=== PATIENT | female | born 2000 | race Hispanic/Latino ===

== ENCOUNTER 2022-12-31 14:39 | Emergency (ER) | payer SELFPAY ==
[2022-12-31] MEDS ORDERED: LIDOCAINE 2% MPF 5 ML VIAL ONE (16:15)
[2022-12-31] MEDS ORDERED: LIDOCAINE HCL JELLY 2% 6 ML SYRINGE TOP ONE (16:16)
[2022-12-31] MEDS ORDERED: BUPIVACAINE 0.5% PF 10 ML VIAL ONE (16:16)
[2022-12-31] MEDS ORDERED: TDAP (DIPHTH,PERTUSS(ACELL),TET VAC) 0.5 ML VIAL IMVAC ONE (16:16)
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
[2022-12-31] MEDS ORDERED: DOXYCYCLINE 100 MG CAP PO ONE (17:42)
[2022-12-31] MEDS ORDERED: HYDROCODONE/APAP 5/325 MG TAB ONE (17:43)
[2022-12-31 18:00] VITALS: BP 124/101; TEMP 98.9; O2SAT 96
== END 2022-12-31 17:55 | disposition home or self-care (01) ==
LOC: ER 14:39
DX: S61.215A Laceration without foreign body of left ring finger without damage to nail, initial encounter (principal); F17.210 Nicotine dependence, cigarettes, uncomplicated
CPT/HCPCS: 96372; 99284; J2001

== ENCOUNTER 2023-01-23 18:53 | Emergency (ER) | payer SELFPAY ==
--- OUTSIDE RECORDS SUMMARY | 2023-01-23 19:00 | XMS REPORT | Continuity of Care Document ---
:2000 Author Organization [facility] t Address [address] [place] [address] Care Team Providers Name Role Phone Unavailable Unavailable Unavailable Problems This patient has no known problems. Allergies, Adverse Reactions, Alerts This patient has no known allergies or adverse reactions. Medications This patient has no known medications. Procedures This patient has no known procedures. Results Test Description Test Time Test Comments Results Result Comments Source VAGINAL PATHOGENS DNA PANEL 2022-04-13 16:53:25 Test Item Value Reference Range Interpretation Comme nts THOMAS SPECIES (test code = NEGATIVE NEGATIVE ) G. VAGINALIS (test code = NEGATIVE NEGATIVE ) T. VAGINALIS (test code = NEGATIVE NEGATIVE U NLESS OTHERWISE INDICATED, ALL ) TESTING PERFORM ED ATCLINICAL PATHOLOGY [place] [facility] [address] [place] [address] LABORATORY DIRE CTOR: LUIS FELIPE LITTLE M.D. SAMMYIA NUMBER [id number] [place]. [id number]
--- NOTE | 2023-01-23 19:24 | ER ---
Nurse's Notes [facility] Name: Sailaja Cohen Age: 22 yrs Sex: Female : 2000 Arrival Date: 01/23/2023 Time: 18:53 Bed DX4 Private MD: Diagnosis: Encounter for removal of sutures Presentation: 01/23 19:20 Chief complaint: Patient states: I just need my sutures removed. Coronavirus screen: At jb4 this time, the client does not indicate any symptoms associated with coronavirus-19. Ebola Screen: No symptoms or risks identified at this time. Initial Sepsis Screen: Does the patient meet any 2 criteria? No. Patient's initial sepsis screen is negative. Does the patient have a suspected source of infection? No. Patient's initial sepsis screen is negative. Risk Assessment: Do you want to hurt yourself or someone else? Patient reports no desire to harm self or others. Onset of symptoms was January 23, 2023. Transition of care: patient was not received from another setting of care. 19:20 Method Of Arrival: Ambulatory jb4 19:20 Acuity: LARRY 5 jb4 Historical: - Allergies: 19:21 No Known Allergies; jb4 - Home Meds: 19:21 None [Active]; jb4 - PMHx: 19:21 None; jb4 - PSHx: 19:21 None; jb4 - Immunization history:: Adult Immunizations up to date. - Social history:: Smoking status: Patient reports the use of cigarette tobacco products, Reported history of juuling and/or vaping. Screenin:21 [facility] ED Fall Risk Assessment (Adult) History of falling in the last 3 months, jb4 including since admission No falls in past 3 months (0 pts) Confusion or Disorientation No (0 pts). Abuse screen: Denies threats or abuse. Nutritional screening: No deficits noted. Tuberculosis screening: No symptoms or risk factors identified. Assessment: 19:21 General: Appears in no apparent distress. comfortable. Pain: Denies pain. Neuro: Level jb4 of Consciousness is awake, alert, obeys commands, Oriented to person, place, time, situation. Cardiovascular: Patient's skin is warm and dry. Respiratory: Airway is patent Respiratory effort is even, unlabored, Respiratory pattern is regular, symmetrical. Vital Signs: 19:20 BP 102 / 74; Pulse 65; Resp 16; Pulse Ox 100% on R/A; jb4 ED Course: 18:55 Patient arrived in ED. mr 18:58 Deion Talley PA is PHCP. cp 18:58 Dimas Pal MD is Attending Physician. cp 19:21 Triage completed. jb4 19:21 Arm band placed on right wrist. jb4 19:21 Patient has correct armband on for positive identification. Bed in low position. Call jb4 light in reach. Side rails up X 1. 19:21 No provider procedures requiring assistance completed. Patient did not have IV access jb4 during this emergency room visit. Administered Medications: No medications were administered Medication: 19:21 VIS not applicable for this client. jb4 Outcome: 19:21 Discharged to home ambulatory. jb4 19:21 Condition: stable 19:21 Discharge instructions given to patient, Instructed on discharge instructions, follow up and referral plans. Demonstrated understanding of instructions, follow-up care. 19:24 Discharge ordered by MD. cp 19:26 Patient left the ED. jb4 Signatures: Marcelo Sun mr Deion Talley PA PA cp Jatinder Ruffin, RN RN jb4
--- NOTE | 2023-01-23 19:24 | EDPHYS ---
Physician Documentation [facility] Name: Sailaja Cohen Age: 22 yrs Sex: Female : 2000 Arrival Date: 01/23/2023 Time: 18:53 Bed DX4 Private MD: ED Physician Dimas Pal HPI: 01/23 19:15 This 22 yrs old Female presents to ER via Unassigned with complaints of Suture cp Removal. 19:15 The patient has sutures on the left fourth finger. Previous treatment: The patient was cp initially treated 3 weeks ago, the care was rendered at [facility], Treatment type: The patient's original treatment included sutures, Previous recheck: the patient has not been checked since the original treatment. Sutures/heidy progress: The patient has no c/o's. The wound is well-healing with no redness, swelling, discharge, or dehiscence reported. Historical: - Allergies: 19:21 No Known Allergies; jb4 - Home Meds: 19:21 None [Active]; jb4 - PMHx: 19:21 None; jb4 - PSHx: 19:21 None; jb4 - Immunization history:: Adult Immunizations up to date. - Social history:: Smoking status: Patient reports the use of cigarette tobacco products, Reported history of juuling and/or vaping. ROS: 19:20 Skin: Positive for sutures left fourth finger. cp 19:20 All other systems are negative. Exam: 19:22 Head/Face: Normocephalic, atraumatic. cp 19:22 Constitutional: The patient appears in no acute distress, alert, awake, non-toxic, well developed, well nourished. 19:22 Cardiovascular: Rate: normal. 19:22 Respiratory: the patient does not display signs of respiratory distress, Respirations: normal. 19:22 Skin: reexamination of left fourth finger shows [address], wound appears well-healed with no swelling and no erythema. Vital Signs: 19:20 BP 102 / 74; Pulse 65; Resp 16; Pulse Ox 100% on R/A; jb4 Procedures: 19:25 Suture/Staple removal: Removed 1 sutures, from distal phalanx of left fourth finger, cp site appears well healed, Patient tolerated well. MDM: 19:21 Patient medically screened. cp 19:24 Data reviewed: vital signs, nurses notes, and as a result, I will discharge patient. cp 19:24 Counseling: I had a detailed discussion with the patient and/or guardian regarding: the cp historical points, exam findings, and any diagnostic results supporting the discharge/admit diagnosis, to return to the emergency department if symptoms worsen or persist or if there are any questions or concerns that arise at home. Administered Medications: No medications were administered Disposition: 20:31 Co-signature as Attending Physician, Dimas Pal MD. rn Disposition Summary: 01/23/23 19:24 Discharge Ordered Location: Home cp Problem: new cp Symptoms: have improved cp Condition: Stable cp Diagnosis - Encounter for removal of sutures cp Followup: cp - With: Private Physician - When: 1 - 2 days - Reason: Worsening of condition Discharge Instructions: - Discharge Summary Sheet cp - Suture Removal, Care After cp Forms: - Medication Reconciliation Form cp - Thank You Letter cp - Antibiotic Education cp - Prescription Opioid Use cp - Patient Portal Instructions cp Signatures: Dimas Pal MD MD rn Deion Talley PA PA cp Jatinder Ruffin RN RN jb4 Corrections: (The following items were deleted from the chart) 01/24 16:20 01/23 16:22 Skin: reexamination of left fourth finger shows [address], wound cp appears well-healed with no swelling and no erythema. cp 01/24 16:20 18 16:22 Constitutional: The patient appears in no acute distress, alert, awake, cp non-toxic, well developed, well nourished, cp 01/24 16:01/23 16:22 Head/Face: Normocephalic, atraumatic. cp cp 01/24 16:20 18 16:22 Cardiovascular: Rate: normal, cp cp 01/24 16:20 0718 16:22 Respiratory: the patient does not display signs of respiratory distress, cp Respirations: normal, cp
[2023-01-23 19:46] VITALS: BP 102/74; O2SAT 100
== END 2023-01-23 19:26 | disposition home or self-care (01) ==
LOC: ER 18:53
DX: Z48.02 Encounter for removal of sutures (principal)
CPT/HCPCS: 99282